=== PATIENT | male | born 1960 | race Caucasian/White ===

== ENCOUNTER 2018-12-24 14:10 | Emergency (ER) | payer BC ==
[2018-12-24] MEDS ORDERED: HYDROcodone/Acetaminophen 10/325 mg Tablet ONE (15:43)
== END 2018-12-24 15:48 | disposition home or self-care (01) ==
LOC: ERS 14:10
DX: M25.551 Pain in right hip (principal); M25.552 Pain in left hip; M25.511 Pain in right shoulder; M25.512 Pain in left shoulder; M54.5 Low back pain; I10 Essential (primary) hypertension; E78.00 Pure hypercholesterolemia, unspecified
CPT/HCPCS: 99283

== ENCOUNTER 2019-09-18 13:04 | Outpatient (CLI) | payer BC ==
--- NOTE | 2019-09-18 13:25 | RAD ---
LUMBAR SPINE 4 VIEWS: Date: 09/18/19 HISTORY: Low back pain. FINDINGS: Lumbar vertebra maintain normal height. Disc spaces are preserved. There is mild anterolisthesis at L 4-5 and at L5-S1. Mild facet hypertrophy at both of these levels. Minimal degenerative osteophytes. IMPRESSION: Slight anterolisthesis at L4-5 and L5-S1 measuring 3-4 mm at each level. There are mild degenerative changes with facet hypertrophy and very mild spurring. POS: C
== END 2019-09-18 13:05 | disposition home or self-care (01) ==
LOC: BICRAD 13:04
PROVIDERS: ATTEND Internal Medicine Rheumatology
DX: M54.5 Low back pain (principal); M47.816 Spondylosis without myelopathy or radiculopathy, lumbar region; M43.16 Spondylolisthesis, lumbar region; M43.17 Spondylolisthesis, lumbosacral region
CPT/HCPCS: 72110

== ENCOUNTER 2020-05-04 08:04 | Outpatient (CLI) | payer BC ==
--- NOTE | 2020-05-04 08:47 | MMO ---
Bilateral MAMMO Bilat Diag [facility]DI+BECKY. CLINICAL HISTORY: Patient is 59 years old and is seen for diagnostic exam. The patient has the following family history of breast cancer: maternal grandmother. The patient has a history of Prostate. VIEWS: The views performed were: bilateral craniocaudal with tomosynthesis; bilateral mediolateral oblique with tomosynthesis; and bilateral mediolateral with tomosynthesis. This study has been interpreted with the assistance of computer-aided detection. MAMMOGRAM FINDINGS: Bilateral subaerolar fibroglandular tissue, left greater than right is seenconsistent with gynecomastia. There are no suspicious masses, suspicious calcifications, or new areas of architectural distortion. IMPRESSION: THERE IS NO MAMMOGRAPHIC EVIDENCE OF MALIGNANCY. THE RESULTS OF THIS EXAM WERE SENT TO THE PATIENT. ACR BI-RADS Category 2 - Benign finding MAMMOGRAPHY NOTE: 1. A negative mammogram report should not delay a biopsy if a dominant of clinically suspicious mass is present. 2. Approximately 10% to 15% of breast cancers are not detected by mammography. 3. Adenosis and dense breasts may obscure an underlying neoplasm. Reported by: SADIA REESE MD Electonically Signed: [id number]
--- NOTE | 2020-05-04 10:49 | ULT ---
LEFT BREAST ULTRASOUND: HISTORY: Left breast mass. FINDINGS/IMPRESSION: Correlation is made with the mammogram of same date. Sonographic evaluation of the left retroareolar breast demonstrates fibroglandular tissue correspondi ng to gynecomastia seen on the mammogram. No mass is seen. POS: OFF
== END 2020-05-04 08:05 | disposition home or self-care (01) ==
LOC: BICMAMMO 08:04
PROVIDERS: ATTEND Internal Medicine
DX: N64.4 Mastodynia (principal); N63.20 Unspecified lump in the left breast, unspecified quadrant; N62 Hypertrophy of breast
CPT/HCPCS: 77066; G0279